=== PATIENT | female | born 1980 | race Caucasian/White ===

== ENCOUNTER → 2019-05-10 | Outpatient (REF) | payer OTHER | LOC: M LAB LCGH 12:00 | PROVIDERS: ATTEND Obstetrics & Gynecology | DX: Z12.4 Encounter for screening for malignant neoplasm of cervix (principal) ==

== ENCOUNTER → 2019-10-11 | Outpatient (REF) | LOC: M LAB 10:21 | PROVIDERS: ATTEND Nurse Practitioner Adult Health | DX: Z02.1 Encounter for pre-employment examination (principal) ==

== ENCOUNTER 2020-11-01 16:07 | Emergency (ER) | payer OTHER ==
[~2020-11-01] VITALS: Ht 175.3 cm; Wt 109.8 kg
[2020-11-01] MEDS ORDERED: METF-838 (16:37)
[2020-11-01] MEDS ORDERED: CETI-24 (16:37)
[2020-11-01] MEDS ORDERED: GLYB5TAB6 (16:37)
[2020-11-01] MEDS ORDERED: EQL50TAB2 PO (16:37)
[2020-11-01] MEDS ORDERED: ZINC1TAB2 PO (16:37)
[2020-11-01] MEDS ORDERED: VITA500079 PO (16:37)
--- OUTSIDE RECORDS SUMMARY | 2020-11-01 18:09 | CCD | Continuity of Care Document ---
Author Author [facility] Organization [facility] Address [address] [place] [address] Phone Support Name Relationship Address Phone Katharine Love PRS [address] [place] [address] Page Arce PRS [address] [place] [address] Allergies, Adverse Reactions, Alerts Allergen Type Severity Reaction Last Updated Verified Status SEASONAL ALLERGIES Allergy Moderate stuffiness, irritated throat May 072018 10:04am No Active Medications Medication Status Dose Units Route Directions Qty Days Start Date End Date Instructions Fluconazole (Diflucan) 150 mg tablet Discontinued 150 MG PO Every Week 4 May 10, 2019 12:5 2pm September 03, 2019 12:01am Nystatin-Triamcinolone Discontinued 0 TOP 2 Times Per Day May 10, 2019 12: 53pm August 10, 2020 9:22am APPLY SMAL L AMOUNT TO AFFECTED AREA TO LABIA TWICE DAILY FOR 7 DAYS DIRECTED MAY REPEAT IF NEEDED topical 2 times per day PRN; Cetirizine (Zyrtec) 10 mg tablet,disintegrating Discontinued 10 MG PO daily May 03, 2019 12:31pm July 14, 2019 1:37pm Cyclobenzaprine Discontinued 10 MG PO 2 Times Per Day 20 May 03, 2019 12 :54pm May 12, 2019 11:00pm Cetirizine Discontinued MG PO September 02, 2019 1:20pm December 27, 2019 10:19am Glyburide Discontinued 5 MG PO 2 Times Per Day 60 September 02, 2019 1:33pm September 27, 2019 12:31pm Glyburide Discontinued 5 MG PO 2 Times Per Day 180 December 27, 2019 10:13am March 27, 2020 10:20am Cetirizine Active 10 MG PO daily 90 December 27, 2019 10:18am Diphenhydramine Hcl (Benadryl Allergy) 25 mg tablet Active 50 MG PO . QD October 09, 2020 3:14pm Glyburide Active 5 MG PO 2 Times Per Day 180 October 09, 2020 3:45pm Metformin Active 1000 MG PO 2 Times Per Day 360 October 09, 2020 3:45pm Metformin Discontinued 2 000 MG PO At Bedtime November 21, 2016 6:59pm May 27, 2019 3:24pm Cyclobenzaprine Discontinued 10 MG PO Every 8 hours November 21, 2016 9:44pm November 11, 2018 10:43am Hydrocodone-Acetaminophen Discontinued 1 - 2 EACH PO Every 4-6 hours November 21, 2016 9:44pm November 11, 2018 10:43am Metformin Discontinued 1 000 MG PO 2 Times Per Day 120 May 27, 2019 3:23pm July 09, 2019 1:45pm Glipizide Discontinued 5 MG PO daily June 28, 2019 10:08am July 09, 2019 1:45pm Glipizide Discontinued 5 MG PO daily July 09, 2019 1:44pm July 14, 2019 11:36am Metformin Discontinued 1 000 MG PO 2 Times Per Day 120 July 09, 2019 1:45pm July 14, 2019 10:35am Metformin Discontinued 1 000 MG PO 2 Times Per Day 120 July 14, 2019 10:35am July 14, 2019 10:36am Metformin Discontinued 1 000 MG PO 2 Times Per Day 360 July 14, 2019 10:35am April 03, 2020 7:21am Blood Sugar Diagnostic (Freestyle Lite Strips) strip Discontinued 0 .ROUTE .MEDSUPPLY July 14, 2019 10:36am July 1:37pm As directed- tests four times a day. Lancets (Freestyle Lancets) 28 gauge [facility] Active 0 .ROUTE .MEDSUPPLY July 14, 2019 10:37am As directed-tests four times a day Glyburide Discontinued 2 .5 MG PO daily July 14, 2019 11:36am July 14, 2019 11:46am Glyburide Discontinued 2 .5 MG PO daily July 14, 2019 11:48am September 02, 2019 1:33pm Blood-Glucose Meter (Onetouch Ultra2 Meter) [facility] Active 0 .ROUTE .MEDSUPPLY July 14, 2019 1:45pm As directed Lancets (Onetouch Delica Lancets) 33 gauge misc Active 0 .ROUTE .MEDSUPPLY 100 July 14, 2019 1:48pm As directed-tests f our times a day Blood Sugar Diagnostic (Onetouch Ultra Blue Test Strip ) strip Discontinued 0 .ROUTE .MEDSUPPLY 100 July 14, 2019 1:51pm September 012018 7:48am As directed-tests four times a day Blood Sugar Diagnostic (Onetouch Ultra Blue Test Strip ) strip Active 0 .ROUTE .MEDSUPPLY 180 September 01, 2019 7:46am As direct ed- tests 3 times per day Glyburide Discontinued 5 MG PO 2 Times Per Day September 27, 2019 12:30pm December 27, 2019 10:14am Empagliflozin (Jardiance) 10 mg tablet Discontinued 10 MG PO E very Morning March 27, 2020 10:20am March 29, 2020 2:07pm Ertugliflozin (Steglatro) 5 mg tablet Discontinued 5 MG PO Ev sterling Morning March 29, 2020 2:07pm April 24, 2020 3:04pm Metformin Discontinued 1 000 MG PO 2 Times Per Day 360 April 03, 2020 7:21am October 09, 2020 3:45pm Fluconazole Discontinued 150 MG PO Q3D 2 0 April 24, 2020 3:03pm June 02, 2020 4:03pm take one tab today, repeat in 3 days if not resolved. Glyburide Discontinued 5 MG PO 2 Times Per Day 60 April 24, 2020 3:04pm October 09, 2020 3:45pm Triamcinolone Acetonide Active 0 .ROUTE .COMPLEX August 10, 2020 9:22am APPLY A SMALL AMOUNT TO AFFE CTED AREA OF LABIA TWICE DAILY FOR 7 DAYS DIRECTED, MAY REPEAT IF NEEDED Nystatin-Triamcinolone Active 0 TOP 2 Times Per Day August 18, 2020 1:20pm APPLY SMALL AMOUNT TO AFFECT ED AREA TO LABIA TWICE DAILY FOR 7 DAYS DIRECTED MAY REPEAT IF NEEDED topical 2 times per day PRN; Problems Active Problems Medical Problem Onset Date Status Low back pain Active Pain in pelvis Active Encounter for herb and vitamin supplement management Active Controlled type 2 diabetes mellitus without complicati on Active Anxiety Active Left shoulder pain Act katarina Neck pain Active Procedures Procedure Date Performed Status Xray Cervical Spine AP/LAT June 20, 2020 9:16am completed Relevant Diagnostic Tests and/or Laboratory Data Laboratory Results Test Date/Time Result Interpretation Reference Range Result Comment Performing Site Blood Urea Nitrogen September 25 10:27am 8 mg/dL 07-05 [facility], [address] [place] [id number] Blood Urea Nitrogen March 27, 2020 9:42am 10 mg/dL 07-05 [facility], [address] [place] [address] [id number] Blood Urea Nitrogen December 13, 2019 9:01am 8 mg/dL 07-05 [facility], [address] [place] [address] [id number] Sodium Level September 25, 2020 10:27am 137 mmol/L 132-146 [facility], [address] [place] [address] [id number] Sodium Level March 27, 2020 9:42am 137 mmol/L 132-146 [facility], [address] [place] [address] [id number] Sodium Level December 13, 2019 9:01am 136 mmol/L 132-146 [facility], [address] [place] [address] [id number] Potassium Level September 25, 2020 10:27a m 4.2 mmol/L 3.5-5.5 [facility], [address] [place] [address] [id number] Potassium Level March 27, 2020 9:42am 4.4 mmol/L 3.5-5.5 [facility], [address] [place] [address] 17904 Potassium Level December 13, 2019 9:01am 4.2 mmol/L 3.5-5.5 [facility], [address] [place] [address] 89371 Chloride Level September 25, 2020 10:27am 104 mmol/l 99-109 [facility], [address] [place] [address] 15466 Chloride Level March 27, 2020 9:42am 105 mmol/l 99-109 [facility], [address] [place] [address] 44353 Chloride Level December 13, 2019 9:01am 103 mmol/l 99-109 [facility], [address] [place] [address] 23028 Carbon Dioxide Level September 25, 2020 10:27am 25 mmol/l [facility], [address] [place] [address] 48880 Carbon Dioxide Level March 27, 2020 9:42a m 24 mmol/l [facility], [address] [place] [address] Carbon Dioxide Level December 13, 2019 9:01a m 27 mmol/l [facility], [address] [place] [address] Anion Gap September 25, 2020 10:27am 12 mmol/l 05-28 [facility], [address] [place] [address] Anion Gap March 27, 2020 9:42am 12 mmol/l 16 [facility], [address] [place] [address] Anion Gap December 13, 2019 9:01am 10 mmol/l 16 [facility], [address] [place] [address] Glucose Level September 25, 2020 10:27am 255 mg/dL -106 [facility], [address] [place] [address] Glucose Level March 27, 2020 9:42am 218 mg/dL - [facility], [address] [place] [address] Glucose Level December 13, 2019 9:01am 198 mg/dL -106 [facility], [address] [place] [address] 54294 Creatinine September 25, 2020 10:27am 0.7 mg/dL 0.5-1.1 [facility], [address] [place] [address] Creatinine March 27, 2020 9:42am 0.7 mg/dL 0.5-1.1 [facility], [address] [place] [address] Creatinine December 13, 2019 9:01am 0.7 mg/dL 0.5-1.1 [facility], [address] [place] [address] Glomerular Filtration Rate Calc Dece 2019 10:27am Greater than 60 ml/min ABOVE 60 [facility], [address] [place] [address] Glomerular Filtration Rate Calc March 27, 2020 9:42am Greater than 60 ml/min ABOVE 60 [facility], [address] [place] [address] Glomerular Filtration Rate Calc Gray 2019 9:01am Greater than 60 ml/min ABOVE 60 [facility], [address] [place] [address] Alanine Aminotransferase (ALT/SGPT) September 25, 2020 10:27am 46 U/L [facility], [address] [place] [address] 13451 Alanine Aminotransferase (ALT/SGPT) December 13, 2019 9:01am 48 U/L 10-49 [facility], [address] [place] [address] Aspartate Amino Transf (AST/SGOT) [facility] 2019 10:27am 26 U/L 0-33 [facility], [address] [place] [address] [id number] Aspartate Amino Transf (AST/SGOT) [facility] 2019 9:01am 27 U/L 0-33 [facility], [address] [place] [address] 38880 Alkaline Phosphatase September 25, 2020 10:27am 59 U/L 45-129 [facility], [address] [place] [address] Alkaline Phosphatase December 13, 2019 9:01a m 62 U/L 45-129 [facility], [address] [place] [address] Calcium Level September 25, 2020 10:27am 9.3 mg/dL 8.5-10.1 [facility], [address] [place] [address] Calcium Level March 27, 2020 9:42am 9.4 mg/dL 8.5-10.1 [facility], [address] [place] [address] Calcium Level December 13, 2019 9:01am 9.1 mg/dL 8.5-10.1 [facility], [address] [place] [address] Total Bilirubin September 25, 2020 10:27a m 1.1 mg/dL 0.3-1.2 [facility], [address] [place] [address] Total Bilirubin December 13, 2019 9:01am 0.8 mg/dL 0.3-1.2 [facility], [address] [place] [address] 49420 Albumin September 25, 2020 10:27am 3.7 g/dL 3.2-4.8 [facility], [address] [place] [address] Albumin December 13, 2019 9:01am 4.0 g/dL 3.2-4.8 [facility], [address] [place] [address] 16589 Serum Total Protein September 25 10:27am 6.9 g/dL 5.7-8.2 [facility], [address] [place] [address] Serum Total Protein December 13, 2019 9:01am 7.5 g/dL 5.7-8.2 [facility], [address] [place] [address] Triglycerides Level September 25 10:27am 313 mg/dL 0-150 [facility], [address] [place] [address] Cholesterol Level September 25 0 10:27am 223 mg/dL 120-200 [facility], [address] [place] [address] HDL Cholesterol September 25, 2020 10:27a m 48 mg/dL HDL Less than 40 mg/dL: Major risk for CHDHDL Greater than 59 mg/dL: Low risk for CHD [facility], [address] [place] [address] LDL Cholesterol, Calculated September 25, 2020 10:27am 113 mg/dL 0-100 [facility], [address] [place] [address] Urine Random Creatinine December 12 9:09am 141.0 mg/dL THERE IS NO ESTABLISHED RANGE FOR RANDOM URINE CREATININE [facility], [address] [place] [address] Urine Microalbumin December 13, 2019 9:09am 20.3 mg/L 0.0-29.9 [facility], [address] [place] [address] Urine Microalbumin/Creatinine Ratio December 13, 2019 9:09am 14.3 ug/mg 0.0-30.0 [facility], [address] [place] [address] Hemoglobin A1c September 25, 2020 10:27am 9.3 % 4.0-6.0 The following ranges may be used for interpretation of results: HGBA1C degree of glucose control: Greater than 8%: Action Suggested * Less than 7%: Goal of Diabetic Therapy Less than 6%: Normal Factors such as duration of diabetes, adherence to therapyand the age of the patient should also be considered inassessing the degree of blood glucose control. * High risk of developing regional intermodal truck driver complications such asretinopathy, nephropathy, neuropathy, cardiopathy, etc. Some danger of hypoglycemic reaction in Type I diabetics.Some glucose intolerant individuals and "Sub Clinical"diabetics may demonstrate HGBA1C levels in this area. [facility], [address] [place] [address] Hemoglobin A1c March 27, 2020 9:42am 9.2 % 4.0-6.0 Th e following ranges may be used for interpretation of results: HGBA1C degree of glucose control: Greater than 8%: Action Suggested * Less than 7%: Goal of Diabetic Therapy Less than 6%: Normal Factors such as duration of diabetes, adherence to therapyand the age of the patient should also be considered inassessing the degree of blood glucose control. * High risk of developing senior care complications such asretinopathy, nephropathy, neuropathy, cardiopathy, etc. Some danger of hypoglycemic reaction in Type I diabetics.Some glucose intolerant individuals and "Sub Clinical"diabetics may demonstrate HGBA1C levels in this area. [facility], [address] [place] [address] Hemoglobin A1c December 13, 2019 9:01am 8.4 % 4.0-6.0 Th e following ranges may be used for interpretation of results: HGBA1C degree of glucose control: Greater than 8%: Action Suggested * Less than 7%: Goal of Diabetic Therapy Less than 6%: Normal Factors such as duration of diabetes, adherence to therapyand the age of the patient should also be considered inassessing the degree of blood glucose control. * High risk of developing senior care complications such asretinopathy, nephropathy, neuropathy, cardiopathy, etc. Some danger of hypoglycemic reaction in Type I diabetics.Some glucose intolerant individuals and "Sub Clinical"diabetics may demonstrate HGBA1C levels in this area. [facility], [address] [place] [address] Estimated Average Glucose (eAG) [facility] 2019 10:27am 220 mg/dl An A1C of 7% - the goal of diabetic ther apy - is equivalentto an EAG of 154 mg/dl. [facility], [address] [place] [address] Estimated Average Glucose (eAG) March 27, 2020 9:42am 217 mg/dl An A1C of 7% - the goal of diabetic therapy - is equivalentto an EAG of 154 mg/dl. [facility], [address] [place] [address] Estimated Average Glucose (eAG) [facility] 2019 9:01am 194 mg/dl An A1C of 7% - the goal of diabetic therapy - is equivalentto an EAG of 154 mg/dl. [facility], [address] [place], [place] [id number] Diagnostic Imaging Reports Report Dictated Date/Time Dictated By Status Radiology Report June 21, 2020 5:36p m Jessa Bello MD completed [facility] [address] [place] [address] [phone] NAME SEX PT STATUS ACCOUNT NUMBER JENNIFER ALONZO REG REF [id number] ORDERING PHYSICIAN LOCATION MEDICAL RECORD NO. Katharine Love RAD [id number] ATTENDING PHYSICIAN DATE OF DATE OF EXAM/TIME Katharine Love DIRECTOR CORRECTIONAL AGENCY 1980 06/20/20 / 1016 TYPE / EXAM Xray Cervical Spine AP/LAT REASON FOR EXAM neck pain into left trap COMPARISON: None FINDINGS: Routine views show no evidence of fracture or dislocation. The vertebral bodies and disk spaces are well-maintained. The pedicles and posterior elements are intact. Oblique views show no encroachment on the neural foramen. The paraspinal soft tissues appear normal. IMPRESSION: Unremarkable cervical spine. Reported By Jessa Bello MD on 06/21/201735 Signed By Jessa Bello MD on 06/21/201736 Date Time CC: Katharine Love; Jessa Bello MD Techn: RADTC Trans Dt/Tm: Trans by: DT Prt Dt/Tm: [id number]: Total DLP = 0.00 mGy-cm Fluoroscopy Time (in secs): Health Concerns Health Concerns may be documented in an alternate section. Advance Directives Advance Directive Response Recorded Date/Time Advanced Directive No Au lizeth 2019 2:41pm Does Patient have a DNR? No October 09, 2020 3:12pm Healthcare Proxy No Dece [email or web address] 2019 3:12pm Living Will No October 09, 2020 3:12pm Chief Complaint and Reason for Visit Chief Complaint E11.65 Diabetes Diabetes follow-up E11.9 Shoulder pain/injury Shoulder pain/injury follow-up NECK PAIN INTO LT TRAP I10,E11.9 Medication check Reason for Visit Left shoulder pain Neck pain Encounters Encounter Location(s) Jose schillingl/Admit Date Discharge/Depart Date Provider(s) Registered Referred -Laboratory December 13, 2019 8:56am Katharine Love Departed Physician/Provider Office Visit -[facility] December 27, 2019 10:07am December 27, 2019 10:59am Katharine Love Departed Physician/Provider Office Visit -[facility] March 27, 2020 9:03am March 27, 2020 9:31am Katharine Love Registered Referred -Laboratory March 27, 2020 9:33am Katharine Love Departed Physician/Provider Office Visit -[facility] June 02, 2020 4:00pm June 02, 2020 4:28pm Page Yazmin Departed Physician/Provider Office Visit -[facility] June 20, 2020 8:27am June 20, 2020 9:00am Katharine Love Registered Referred -Radiology June 20, 2020 9:04am Katharine Love Registered Referred -Laboratory September 25, 2020 10:15am Katharine Love Departed Physician/Provider Office Visit -[facility] October 09, 2020 3:08pm October 09, 2020 3:51pm Katharine Love Recent Diagnosis Onset Date Left shoulder pain Neck pain Assessments Diagnosis Onset Date Res olution Status Left shoulder pain acute Neck pain acute Functional Status No Functional Status information available Goals Goals may be documented in an alternate section. Immunizations No Immunization Information Available Mental Status No Mental Status Information Available Medical Equipment No Medical Equipment Information available Insurance Providers Guarantor JENNIFER ALONZO Address [address] [place] [address] Contact Info. Home Phone: Payer Policy Id Coverage Id Subscriber's Name Subscriber Id Effective Date Expiration Date BC/BS [facility] [id number] JENNIFER ALONZO [id number] BC[facility] [id number] JENNIFER ALONZO [id number] 2016 [place] [facility] [place] [id number] JENNIFER ALONZO [id number] [facility] [id number] JENNIFER ALONZO [id number] MEDICAID [id number] JENNIFER ALONZO [id number] Self Pay Self N/A [facility] MEDICAID [id number] JENNIFER ALONZO [id number] Plan of Treatment Xray of neck ordered. I think the pain in her left shoulder region is radiating from her neck. She will have an xray done of the cervical spine. We discuss at home stretching for the neck, as she is unable to go to PT. She has a massage today, which I think will help her as calista pollard. I will have her follow up with Dr. Marlow in the next 1-2 weeks if not better. Otherwise, if she pro gressively gets better I will see her at her July appt. Pt advised I would recommend evaluation and treatment by Physical therapy. She w ill continue to avoid activities that cause pain. She has agreed to try PT. Follow up if getting worse or not resolving in 5-7 days either here or with PCP Future Tests Future scheduled test information is unavailable Pending Tests Pending diagnostic test information is unavailable Future Visits Future appointment information is unavailable Referrals to Other Providers Referral information is unavailable Future Procedures Future procedure information is unavailable Future Medications Future medication information is unavailable Patient Instructions Type 2 Diabetes in Adults: New Diagnosis (GEN) Social History Smoking Status Status Date of Observation Former smoker October 09, 2020 3: 12pm Observation Status Date of Observation Not June 02, 2020 Observation Status Observation Response Damaso e of Response Smoking Status Former smoker October 09, 2020 3:12pm Alcohol Use Yes May 142019 2:41pm Substance Use No June 02, 2020 2:41pm Assigned Sex Female Vital Signs Vital Reading Result Ref erence Range Collection Date/Time Weight 236.00 [lb_av] December 27, 2019 11:11am Heart Rate 78 /min 60-100 December 27, 2019 11:11am Respiratory rate 16 /min 12-24 December 27, 2019 11:11am Oxygen saturation by Pulse oximetry 98 % 95- 100 December 27, 2019 11:11am BP Systolic 152 mm[Hg] December 27, 2019 11:11am BP Diastolic 98 mm[Hg] December 27, 2019 11:11am Height 69 [in_i] March 27, 2020 10:03am Weight 240.00 [lb_av] March 27, 2020 10:03am Body Temperature 98.4 [degF] 97.6-99.5 March 27, 2020 10:03am Heart Rate 80 /min 60-100 March 27, 2020 10:03am Respiratory rate 18 /min -March 27, 2020 10:03am Oxygen saturation by Pulse oximetry 97 % 95- 100 March 27, 2020 10:03am BP Systolic 126 mm[Hg] March 27, 2020 10:03am BP Diastolic 80 mm[Hg] March 27, 2020 10:03am BMI (Body Mass Index) 35.4 kg/m2 March 27, 2020 10:03am Weight 239.25 [lb_av] June 02, 2020 4:53pm Body Temperature 97.5 [degF] 97.6-99.5 June 02, 2020 4:53pm Heart Rate 87 /min 60-100 June 02, 2020 4:53pm Respiratory rate 18 /min -June 02, 2020 4:53pm Oxygen saturation by Pulse oximetry 98 % 95- 100 June 02, 2020 4:53pm BP Systolic 126 mm[Hg] June 02, 2020 4:53pm BP Diastolic 80 mm[Hg] June 02, 2020 4:53pm Height 69 [in_i] June 20, 2020 9:33am Weight 240.00 [lb_av] June 20, 2020 9:33am Heart Rate 68 /min 60-100 June 20, 2020 9:33am Respiratory rate 12 /min -June 20, 2020 9:33am Oxygen saturation by Pulse oximetry 98 % 95- 100 June 20, 2020 9:33am BP Systolic 120 mm[Hg] June 20, 2020 9:33am BP Diastolic 72 mm[Hg] June 20, 2020 9:33am BMI (Body Mass Index) 35.4 kg/m2 June 20, 2020 9:33am Weight 239.00 [lb_av] October 09, 2020 3:19pm Body Temperature 98.2 [degF] 97.6-99.5 October 09, 2020 3:19pm Heart Rate 82 /min 60-100 October 09, 2020 3:19pm Respiratory rate 20 /min 12-October 09, 2020 3:19pm Oxygen saturation by Pulse oximetry 95 % 95- 100 October 09, 2020 3:19pm BP Systolic 130 mm[Hg] October 09, 2020 3:19pm BP Diastolic 80 mm[Hg] October 09, 2020 3:19pm
--- OUTSIDE RECORDS SUMMARY | 2020-11-01 18:09 | CCD | Continuity of Care Document ---
Author Author Sheila HARDEN NP Organization Unknown Address [address] [place] [address] [place] [address] Phone [phone] Care Team Providers Care Lacing Presser Name Role Phone [facility] [phone] Problems Description No Information Available Social History Type Date Description Comments Sex Unknown ETOH Use Occasionally consumes alcohol Tobacco Use Start: Unknown The patient has never vaped Tobacco Use Start: Unknown Patient has never smoked Smoking Status Reviewed: 08/12/20 Patient has never smoked Allergies, Adverse Reactions, Alerts Description No Known Drug Allergies Medications Active Medications SIG Qnty Indications Ordering Provide r Date Metformin HCL 1000mg Tablets bid Unknown Glimepiride 4mg Tablets bid Unknown Zyrtec Allergy 10mg Capsules 1 tab by mouth every day as needed for allergy symptoms U nknown Benadryl Allergy 25mg Capsules Unknown Immunizations Description No Information Available Vital Signs Date Vital Result Comment 08/12/2020 4:26pm BP Systolic 140 mmHg BP Diastolic 90 mmHg Heart Rate 89 /min Respiratory Rate 14 /min O2 % BldC Oximetry 98 % Body Temperature 98.1 F Weight 230.00 lb Height 69 inches 5'9" BMI (Body Mass Index) 34.0 kg/m2 Pain Level 1 Results Description No Information Available Procedures Description No Information Available Medical Devices Description No Information Available Encounters Type Date Location Provider Dx Diagnosis Office Visit 08/12/2020 4:00p Main Office Radha Harden NP J06. 9 Acute upper respiratory infection, unspecified Z20.828 Contact w and exposure to ot h viral communicable diseases Assessments Date Code Description Provider 08/12/2020 J06.9 Acute upper respiratory infectio n, unspecified Radha Harden NP 08/12/2020 Z20.828 Contact with and (scott spected) exposure to other viral communicable diseases Radha Harden NP Plan of Treatment No Information Available Functional Status Description No Information Available Mental Status Description No Information Available Referrals Description No Information Available
--- OUTSIDE RECORDS SUMMARY | 2020-11-01 18:09 | CCD | Continuity of Care Document ---
Author Author Sheila HARDEN NP Organization Unknown Address [address] [place] [address] [place] [address] Phone [phone] Care Team Providers Care Insole Cementer Name Role Phone [facility] [phone] Problems Description No Information Available Social History [...]
--- OUTSIDE RECORDS SUMMARY | 2020-11-01 18:10 | CCD ---
Author Author [facility] Organization [facility] Address Unknown Phone Unavailable Care Team Providers Care French Tutor Name Role Phone Arce, L Page ACTUARY CLERK Unavailable Unavailable Arce, L Page ACTUARY CLERK Unavailable Unavailable Arce, L Page ACTUARY CLERK Unavailable Unavailable Arce, L Page ACTUARY CLERK Unavailable Unavailable Arce, L Page ACTUARY CLERK Unavailable Unavailable Arce, L Page ACTUARY CLERK Unavailable Unavailable Arce, L Page ACTUARY CLERK Unavailable Unavailable Arce, L Page ACTUARY CLERK Unavailable Unavailable Arce, L Page ACTUARY CLERK Unavailable Unavailable Arce, L Page ACTUARY CLERK Unavailable Unavailable Arce, L Page ACTUARY CLERK Unavailable Unavailable Arce, L Page ACTUARY CLERK Unavailable Unavailable Arce, L Page ACTUARY CLERK Unavailable Unavailable Arce, L Page ACTUARY CLERK Unavailable Unavailable Arce, L Page ACTUARY CLERK Unavailable Unavailable Arce, L Page ACTUARY CLERK Unavailable Unavailable Arce, L Page ACTUARY CLERK Unavailable Unavailable Arce, L Page ACTUARY CLERK Unavailable Unavailable Arce, L Page ACTUARY CLERK Unavailable Unavailable Arce, L Page ACTUARY CLERK Unavailable Unavailable Arce, L Page ACTUARY CLERK Unavailable Unavailable Arce, L Page ACTUARY CLERK Unavailable Unavailable Arce, L Page ACTUARY CLERK Unavailable Unavailable Arce, L Page ACTUARY CLERK Unavailable Unavailable Arce, L Page ACTUARY CLERK Unavailable Unavailable Arce, L Page ACTUARY CLERK Unavailable Unavailable Arce, L Page ACTUARY CLERK Unavailable Unavailable Arce, L Page ACTUARY CLERK Unavailable Unavailable Arce, L Page ACTUARY CLERK Unavailable Unavailable Arce, L Page ACTUARY CLERK Unavailable Unavailable Arce, L Page ACTUARY CLERK Unavailable Unavailable Arce, L Page ACTUARY CLERK Unavailable Unavailable Arce, L Page ACTUARY CLERK Unavailable Unavailable Arce, L Page ACTUARY CLERK Unavailable Unavailable Arce, L Page ACTUARY CLERK Unavailable Unavailable Arce, L Page ACTUARY CLERK Unavailable Unavailable Arce, L Page ACTUARY CLERK Unavailable Unavailable Arce, L Page ACTUARY CLERK Unavailable Unavailable Arce, L Page ACTUARY CLERK Unavailable Unavailable Arce, L Page ACTUARY CLERK Unavailable Unavailable Arce, L Page ACTUARY CLERK Unavailable Unavailable Arce, L Page ACTUARY CLERK Unavailable Unavailable Arce, L Page ACTUARY CLERK Unavailable Unavailable Leno CAMARENA MD Unavailable Unavailable Leno CAMARENA MD Unavailable Unavailable Leno CAMARENA MD Unavailable Unavailable Leno CAMARENA MD Unavailable Unavailable Leno CAMARENA MD Unavailable Unavailable Leno CAMARENA MD Unavailable Unavailable Leno CAMARENA MD Unavailable Unavailable Leno CAMARENA MD Unavailable Unavailable Leno CAMARENA MD Unavailable Unavailable NICOL B LUTHER HORNER Unavailable Unavailable Leno CAMARENA MD Unavailable Unavailable Leno CAMARENA MD Unavailable Unavailable Leno CAMARENA MD Unavailable Unavailable Leno CAMARENA MD Unavailable Unavailable Leno CAMARENA MD Unavailable Unavailable NICOL B LUTHER HORNER Unavailable Unavailable Leno CAMARENA MD Unavailable Unavailable NICOL B LUTHER HORNER Unavailable Unavailable NICOL Leno SLOAN MD Unavailable Unavailable NICOL, Leno SLOAN MD Unavailable Unavailable NICOL, Leno SLOAN MD Unavailable Unavailable NICOL, Leno SLOAN MD Unavailable Unavailable NICOL, Leno SLOAN MD Unavailable Unavailable NICOL, Leno SLOAN MD Unavailable Unavailable NICOL, Leno SLOAN MD Unavailable Unavailable NICOL, Leno SLOAN MD Unavailable Unavailable NICOL, Leno SLOAN MD Unavailable Unavailable NICOL, Leno SLOAN MD Unavailable Unavailable NICOL, Leno SLOAN MD Unavailable Unavailable NICOL, Leno SLOAN MD Unavailable Unavailable NICOL, Leno SLOAN MD Unavailable Unavailable NICOL, Leno SLOAN MD Unavailable Unavailable NICOL, Leno SLOAN MD Unavailable Unavailable NICOL, Leno SLOAN MD Unavailable Unavailable NICOL, Leno SLOAN MD Unavailable Unavailable NICOL, Leno SLOAN MD Unavailable Unavailable NICOL, Leno SLOAN MD Unavailable Unavailable NICOL, Leno SLOAN MD Unavailable Unavailable NICOL, Leno SLOAN MD Unavailable Unavailable NICOL, Leno SLOAN MD Unavailable Unavailable NICOL, Leno SLOAN MD Unavailable Unavailable NICOL, Leno SLOAN MD Unavailable Unavailable NICOL, Leno SLOAN MD Unavailable Unavailable NICOL, Leno SLOAN MD Unavailable Unavailable NICOL, Leno SLOAN MD Unavailable Unavailable NICOL, Leno SLOAN MD Unavailable Unavailable NICOL, Leno SLOAN MD Unavailable Unavailable NICOL, Leno SLOAN MD Unavailable Unavailable NICOL, Leno SLOAN MD Unavailable Unavailable NICOL, Leno SLOAN MD Unavailable Unavailable NICOL, Leno SLOAN MD Unavailable Unavailable NICOL, Leno SLOAN MD Unavailable Unavailable NICOL, Leno SLOAN MD Unavailable Unavailable NICOL, Leno SLOAN MD Unavailable Unavailable NICOL, Leno SLOAN MD Unavailable Unavailable NICOL, Leno SLOAN MD Unavailable Unavailable NICOL, Leno SLOAN MD Unavailable Unavailable NICOL, Leno SLOAN MD Unavailable Unavailable NICOL, Leno SLOAN MD Unavailable Unavailable NICOL, Leno SLOAN MD Unavailable Unavailable NICOL, Leno SLOAN MD Unavailable Unavailable NICOL, Leno SLOAN MD Unavailable Unavailable NICOL, Leno SLOAN MD Unavailable Unavailable NICOL, Leno SLOAN MD Unavailable Unavailable NICOL, Leno SLOAN MD Unavailable Unavailable NICOL, Leno SLOAN MD Unavailable Unavailable NICOL, Leno SLOAN MD Unavailable Unavailable NICOL, Leno SLOAN MD Unavailable Unavailable NICOL, Leno SLOAN MD Unavailable Unavailable NICOL, Leno SLOAN MD Unavailable Unavailable NICOL, Leno SLOAN MD Unavailable Unavailable NICOL, Leno SLOAN MD Unavailable Unavailable NICOL, Leno SLOAN MD Unavailable Unavailable NICOL, Leno SLOAN MD Unavailable Unavailable NICOL, Leno SLOAN MD Unavailable Unavailable NICOL, Leno SLOAN MD Unavailable Unavailable NICOL, Leno SLOAN MD Unavailable Unavailable NICOL, Leno SLOAN MD Unavailable Unavailable NICOL, Leno SLOAN MD Unavailable Unavailable NICOL, Leno SLOAN MD Unavailable Unavailable NICOL, Leno SLOAN MD Unavailable Unavailable NICOL, Leno SLOAN MD Unavailable Unavailable NICOL, Leno SLOAN MD Unavailable Unavailable [facility], ALONGO Unavailable Unavailable Milian, Radha ACTUARY CLERK Unavailable Unavailable Milian, Radha ACTUARY CLERK Unavailable Unavailable Milian, Radha ACTUARY CLERK Unavailable Unavailable Milian, Radha ACTUARY CLERK Unavailable Unavailable Milian, Radha ACTUARY CLERK Unavailable Unavailable Milian, Radha ACTUARY CLERK Unavailable Unavailable Milian, Radha ACTUARY CLERK Unavailable Unavailable Milian, Radha ACTUARY CLERK Unavailable Unavailable Milian, Radha ACTUARY CLERK Unavailable Unavailable Milian, Rdaha ACTUARY CLERK Unavailable Unavailable Milian, Radha ACTUARY CLERK Unavailable Unavailable Ivan, A Katharine ACTUARY CLERK Unavailable Unavailable Ivan, A Katharine ACTUARY CLERK Unavailable Unavailable Ivan, A Katharine ACTUARY CLERK Unavailable Unavailable Ivan, A Katharine ACTUARY CLERK Unavailable Unavailable Ivan, A Katharine ACTUARY CLERK Unavailable Unavailable Ivan, A Katharine ACTUARY CLERK Unavailable Unavailable Ivan, A Katharine ACTUARY CLERK Unavailable Unavailable Ivan, A Katharine ACTUARY CLERK Unavailable Unavailable Ivan, A Katharine ACTUARY CLERK Unavailable Unavailable Ivan, A Katharine ACTUARY CLERK Unavailable Unavailable Ivan, A Katharine ACTUARY CLERK Unavailable Unavailable Ivan, A Katharine ACTUARY CLERK Unavailable Unavailable Ivan, A Katharine ACTUARY CLERK Unavailable Unavailable Ivan, A Katharine ACTUARY CLERK Unavailable Unavailable Ivan, A Katharine ACTUARY CLERK Unavailable Unavailable Ivan, A Katharine ACTUARY CLERK Unavailable Unavailable Ivan, A Katharine ACTUARY CLERK Unavailable Unavailable Ivan, A Katharine ACTUARY CLERK Unavailable Unavailable Ivan, A Katharine ACTUARY CLERK Unavailable Unavailable Ivan, A Katharine ACTUARY CLERK Unavailable Unavailable Ivan, A Katharine ACTUARY CLERK Unavailable Unavailable Ivan, A Katharine ACTUARY CLERK Unavailable Unavailable Ivan, A Katharine ACTUARY CLERK Unavailable Unavailable Ivan, A Katharine ACTUARY CLERK Unavailable Unavailable Ivan, A Katharine ACTUARY CLERK Unavailable Unavailable Ivan, A Katharine ACTUARY CLERK Unavailable Unavailable Ivan, A Katharine ACTUARY CLERK Unavailable Unavailable Ivan, A Katharine ACTUARY CLERK Unavailable Unavailable Ivan, A Katharine ACTUARY CLERK Unavailable Unavailable Ivan, A Katharine ACTUARY CLERK Unavailable Unavailable Ivan, A Katharine ACTUARY CLERK Unavailable Unavailable Ivan, A Katharine ACTUARY CLERK Unavailable Unavailable Ivan, A Katharine ACTUARY CLERK Unavailable Unavailable Ivan, A Katharine ACTUARY CLERK Unavailable Unavailable Ivan, A Katharine ACTUARY CLERK Unavailable Unavailable Ivan, A Katharine ACTUARY CLERK Unavailable Unavailable Ivan, A Katharine ACTUARY CLERK Unavailable Unavailable Ivan, A Katharine ACTUARY CLERK Unavailable Unavailable Re-disclosure Warning The records that you are about to access may contain information from federally-assisted alcohol or drug abuse programs. If such information is present, then the following federally mandated warning applies: This information has been disclosed to you from records protected by federal confidentiality rules (42 CFR part 2). The federal rules prohibit you from making any further disclosure of this information unless further disclosure is expressly permitted by the written consent of the person to whom it pertains or as otherwise permitted by 42 CFR part 2. A general authorization for the release of medical or other information is NOT sufficient for this purpose. The Federal rules restrict any use of the information to criminally investigate or prosecute any alcohol or drug abuse patient.The records that you are about to access may contain highly sensitive health information, the redisclosure of which is protected by Article 27-F of the [facility] Public Health law. If you continue you may have access to information: Regarding HIV / AIDS; Provided by facilities licensed or operated by the [facility] Office of Mental Health; or Provided by the [facility] Office for People With Developmental Disabilities. If such information is present, then the following [facility] mandated warning applies: This information has been disclosed to you from confidential records which are protected by state law. State law prohibits you from making any further disclosure of this information without the specific written consent of the person to whom it pertains, or as otherwise permitted by law. Any unauthorized further disclosure in violation of state law may result in a fine or care home sentence or both. A general authorization for the release of medical or other information is NOT sufficient authorization for further disc losure. Allergies and Adverse Reactions Type Description Substance Reaction Status Data Source(s ) Drug Class NO KNOWN ALLERGIES NO KNOWN ALLERGIES [facility] Encounters Encounter Providers Location Date Indications Data Source(s ) Outpatient Attender: Katharine Love NP 10/09/2020 03:52:00 PM EST [facility] Outpatient Attender: Katharine Love NPReferrer: Katharine pollard NP 10/09/2020 03:08:00 PM EST - 10/09/2020 03:51:00 PM EST [facility] Outpatient Attender: Katharine Love NP 09/25/2020 10:15:00 AM EST I10,E11.9 [facility] I10,E11.9 Outpatient Attender: Radha blood 08/12/2020 04:00:00 PM EDT [facility] ([facility] Outpatient Attender: [facility] 06/21/2020 10:22:01 AM ED T [facility] Outpatient Attender: [facility] 06/20/2020 03:54:00 PM ED T [facility] Outpatient Attender: Katharine Love NP 06/20/2020 10: 04:00 AM EDT NECK PAIN INTO LT TRAP [facility] NECK PAIN INTO LT TRAP Outpatient Attender: Katharine Love NPReferrer: Katharine pollard NP 06/20/2020 09:27:00 AM EDT - 06/20/2020 10:00:00 AM EDT [facility] Outpatient Attender: Page Arce NPReferrer: Katharine rodriguez NP 06/02/2020 05:00:00 PM EDT - 06/02/2020 05:28:00 PM EDT [facility] Outpatient Attender: [facility] 05/08/2020 11:28:02 AM ED T [facility] 05/08/2020 11:20:00 AM ED T [facility] Outpatient Attender: [facility] 04/26/2020 12:26:00 PM ED T [facility] 04/26/2020 10:55:00 AM ED T [facility] Outpatient Attender: Katharine Love NP 03/27/2020 10:33:00 AM EDT E11.9 [facility] E11.9 Outpatient Attender: Katharine Love NPReferrer: Katharine pollard NP 03/27/2020 10:03:00 AM EDT - 03/27/2020 10:31:00 AM EDT [facility] Outpatient Attender: [place] [facility] 03/21/2020 07:59:28 PM ED T [facility] 03/11/2020 12:18:17 AM ED T [facility] Outpatient Attender: [facility] 02/14/2020 11:23:01 AM ED T [facility] 12/29/2019 08:09:01 AM ED T [facility] Outpatient Attender: ALONGO [facility] 12/27/2019 09:01:[address] [facility] 12/27/2019 03:07:[address] [facility] 12/27/2019 03:06:00 PM ED T [facility] 12/27/2019 02:33:01 PM ED T [facility] Outpatient [facility] 12/27/2019 02:28:00 PM ED T [facility] Outpatient Attender: ALONGO [facility] 12/27/2019 02:26:00 PM ED T [facility] Outpatient Attender: Katharine Love NPReferrer: Katharine pollard NP 12/27/2019 11:07:00 AM EDT - 12/27/2019 11:59:00 AM EDT [facility] Outpatient Attender: Katharine Love NP 12/13/2019 08:56:00 AM EST E11.65 [facility] E11.65 Outpatient Attender: [facility] 10/15/2019 11:52:[address] [facility] Outpatient Attender: [facility] 09/24/2019 02:09:[address] [facility] 09/24/2019 02:08:01 PM ES T [facility] Outpatient Attender: LUTHER CAMARENA MD [id number] 09/23/2019 12:00:00 AM [facility] Outpatient Attender: Katharine Love NP 09/02 12:56:00 PM EST - 09/02/2019 01:48:00 PM EST [facility] Outpatient Attender: Katharine Love NP 09/01/2019 05:08:00 PM EST E11.65 [facility] E11.65 Medications Medication Brand Name Start Date Product Form Dose Route Admi nistrative Instructions Pharmacy Instructions Status Indications Reaction Description Data Source(s) 24 HR Metformin hydrochloride 500 MG Extended Release Oral T ablet Metformin 10/09/2020 03:45:34 PM EST 1000 MG active [facility] Glyburide 5 MG Oral Tablet Glyburide 10/09/2020 03:45:03 PM EST 5 MG active [facility] Diphenhydramine Hydrochloride 25 MG Oral Tablet Diphenhydramine Hcl (Benadryl Allergy) 25 mg tablet Diphenhydramine Hcl (Benadryl Allergy) 25 mg tablet 10/09/2020 03:14:11 PM EST 50 MG [facility] Nystatin 100 UNT/MG / Triamcinolone Acet onide 0.001 MG/MG Topical Ointment Nystatin-Triamcinolone Nystatin-Triamcinolone 08/18/2020 01:20:58 PM EST [address] [facility] Triamcinolone Acetonide 0.001 MG/MG Topical Ointment Triamci nolone Acetonide 08/10/2020 10:22:38 AM EDT 0 active [facility] Glyburide 5 MG Oral Tablet Glyburide 04/24/2020 04:04:01 PM EDT 5 MG active [facility] Glyburide 5 MG Oral Tablet Glyburide 04/24/2020 04:04:01 PM EDT 5 MG completed [facility] Glyburide 5 MG Oral Tablet Glyburide 04/24/2020 04:04:01 PM EDT 5 MG active [facility] Fluconazole 150 MG Oral Tablet Fluconazole 04/24/2020 04:03:39 PM EDT 150 MG completed [facility] Fluconazole 150 MG Oral Tablet Fluconazole 04/24/2020 04:03:39 PM EDT 150 MG completed [facility] Fluconazole 150 MG Oral Tablet Fluconazole 04/24/2020 04:03:39 PM EDT 150 MG completed [facility] 24 HR Metformin hydrochloride 500 MG Extended Release Oral T ablet Metformin 04/03/2020 08:21:34 AM EDT 1000 MG active [facility] 24 HR Metformin hydrochloride 500 MG Extended Release Oral T ablet Metformin 04/03/2020 08:21:34 AM EDT 1000 MG completed [facility] 24 HR Metformin hydrochloride 500 MG Extended Release Oral T ablet Metformin 04/03/2020 08:21:34 AM EDT 1000 MG active [facility] Ertugliflozin (Steglatro) 5 mg tablet 03/29/2020 03:07:31 PM EDT 5 MG completed [facility] Ertugliflozin (Steglatro) 5 mg tablet 03/29/2020 03:07:31 PM EDT 5 MG completed [facility] Ertugliflozin (Steglatro) 5 mg tablet 03/29/2020 03:07:31 PM EDT 5 MG completed [facility] empagliflozin 10 MG Oral Tablet Empagliflozin (Jardian ce) 10 mg tablet Empagliflozin (Jardiance) 10 mg tablet 03/27/2020 11:20:56 AM EDT 10 M G completed [facility] empagliflozin 10 MG Oral Tablet Empagliflozin (Jardian ce) 10 mg tablet Empagliflozin (Jardiance) 10 mg tablet 03/27/2020 11:20:56 AM EDT 10 M G completed [facility] empagliflozin 10 MG Oral Tablet Empagliflozin (Jardian ce) 10 mg tablet Empagliflozin (Jardiance) 10 mg tablet 03/27/2020 11:20:56 AM EDT 10 M G completed [facility] cetirizine hydrochloride 10 MG Oral Tablet Cetirizine Cetiri zine 12/27/2019 11:18:41 AM EDT 10 MG completed [facility] cetirizine hydrochloride 10 MG Oral Tablet Cetirizine Cetiri zine 12/27/2019 11:18:41 AM EDT 10 MG active [facility] cetirizine hydrochloride 10 MG Oral Tablet Cetirizine Cetiri zine 12/27/2019 11:18:41 AM EDT 10 MG active [facility] cetirizine hydrochloride 10 MG Oral Tablet Cetirizine Cetiri zine 12/27/2019 11:18:41 AM EDT 10 MG active [facility] cetirizine hydrochloride 10 MG Oral Tablet Cetirizine Cetiri zine 12/27/2019 11:18:41 AM EDT 10 MG active [facility] Glyburide 5 MG Oral Tablet Glyburide 12/27/2019 11:13:35 AM EDT 5 MG completed [facility] Glyburide 5 MG Oral Tablet Glyburide 12/27/2019 11:13:35 AM EDT 5 MG active [facility] Glyburide 5 MG Oral Tablet Glyburide 12/27/2019 11:13:35 AM EDT 5 MG completed [facility] Glyburide 5 MG Oral Tablet Glyburide 12/27/2019 11:13:35 AM EDT 5 MG completed [facility] Glyburide 5 MG Oral Tablet Glyburide 12/27/2019 11:13:35 AM EDT 5 MG completed [facility] Glyburide 5 MG Oral Tablet Glyburide 09/27/2019 12:30:59 PM EST 5 MG completed [facility] Glyburide 5 MG Oral Tablet Glyburide 09/27/2019 12:30:59 PM EST 5 MG completed [facility] Glyburide 5 MG Oral Tablet Glyburide 09/27/2019 12:30:59 PM EST 5 MG completed [facility] Glyburide 5 MG Oral Tablet Glyburide 09/27/2019 12:30:59 PM EST 5 MG completed [facility] Glyburide 5 MG Oral Tablet Glyburide 09/27/2019 12:30:59 PM EST 5 MG completed [facility] Glyburide 5 MG Oral Tablet Glyburide 09/02/2019 01:33:43 PM EST 5 MG completed [facility] Glyburide 5 MG Oral Tablet Glyburide 09/02/2019 01:33:43 PM EST 5 MG completed [facility] Glyburide 5 MG Oral Tablet Glyburide 09/02/2019 01:33:43 PM EST 5 MG completed [facility] Glyburide 5 MG Oral Tablet Glyburide 09/02/2019 01:33:43 PM EST 5 MG completed [facility] Glyburide 5 MG Oral Tablet Glyburide 09/02/2019 01:33:43 PM EST 5 MG completed [facility] cetirizine hydrochloride 10 MG Oral Tablet Cetirizine Cetiri zine 09/02/2019 01:20:51 PM EST completed [facility] cetirizine hydrochloride 10 MG Oral Tablet Cetirizine Cetiri zine 09/02/2019 01:20:51 PM EST completed [facility] cetirizine hydrochloride 10 MG Oral Tablet Cetirizine Cetiri zine 09/02/2019 01:20:51 PM EST completed [facility] cetirizine hydrochloride 10 MG Oral Tablet Cetirizine Cetiri zine 09/02/2019 01:20:51 PM EST completed [facility] cetirizine hydrochloride 10 MG Oral Tablet Cetirizine Cetiri zine 09/02/2019 01:20:51 PM EST [facility] Glyburide 2.5 MG Oral Tablet glyBURIDE (DIABETA) 2.5 M G tablet glyBURIDE (DIABETA) 2.5 MG tablet 07/15/2019 12:00:00 AM EDT 2.5 mg Oral aborted Take 2.5 mg by mouth daily [facility] 24 HR Metformin hydrochloride 500 MG Extended Release Oral T ablet Metformin 07/14/2019 11:35:43 AM EDT 1000 MG [facility] 24 HR Metformin hydrochloride 500 MG Extended Release Oral T ablet Metformin 07/14/2019 11:35:43 AM EDT 1000 MG [facility] 24 HR Metformin hydrochloride 500 MG Extended Release Oral T ablet Metformin 07/14/2019 11:35:43 AM EDT 1000 MG [facility] Nystatin 100 UNT/MG / Triamcinolone Acet onide 0.001 MG/MG Topical Ointment Nystatin-Triamcinolone Nystatin-Triamcinolone 05/10/2019 01:53:53 PM EDT 0 [facility] Fluconazole 150 MG Oral Tablet Fluconazole (Diflucan) 150 mg tablet Fluconazole (Diflucan) 150 mg tablet 05/10/2019 01:52:24 PM EDT 150 MG [facility] Fluconazole 150 MG Oral Tablet Fluconazole (Diflucan) 150 mg tablet Fluconazole (Diflucan) 150 mg tablet 05/10/2019 01:52:24 PM EDT 150 MG completed [facility] Fluconazole 150 MG Oral Tablet Fluconazole (Diflucan) 150 mg tablet Fluconazole (Diflucan) 150 mg tablet 05/10/2019 01:52:24 PM EDT 150 MG completed [facility] Fluconazole 150 MG Oral Tablet Fluconazole 05/10/2019 01:52:24 PM EDT 150 MG completed [facility] Fluconazole 150 MG Oral Tablet Fluconazole 05/10/2019 01:52:24 PM EDT 150 MG completed [facility] Insurance Providers Payer name Policy type / Coverage type Policy ID Covered democrat ID Covered democrat's relationship to bullock Policy [place] Plan Information PMA MANAGEMENT [facility] [id number] [facility] COMMUN[facility] PLAN [facility] [id number] SP [id number] [facility] I [id number] Self [id number] Managed Care - [facility] Community Plan P UNAVAIL[facility] U[facility] Self 0 EXCELLUS I [id number] Self [id number] SPECIAL ACCOUNT (8) UNAVAILABLE UNAVAILABLE MEDICAID (101) [id number] [id number] OPTIONS ([id number]) [id number] [employer] MEDICAID [id number] Patient [id number] Surgeries/Procedures Procedure Description Date Indications Data Source(s) Radiologic examination of cervical spine , anteroposterior and lateral (procedure) 06/20/2020 10:16:00 AM EDT [facility] Results ID Date Data Source [id number] 10/16/2020 04:31:00 PM EST [facility] Name Value Range Interpretation Code Description Data Harini rce(s) Supporting Document(s) 25-Hydroxyvitamin D2+25-Hydroxyvitamin D3 [Mass/volume ] in Serum or Plasma 34 ng/mL 30-100 [facility] Vitamin D Status 25-OH Vitamin D :Deficiency: <20 ng/mLInsufficiency: 20 - 29 ng/mLOptimal: > or = 30 ng/mLFor 25-OH Vitamin D testing on patients onD2-supplementation and patients for whom quantitationof D2 and D3 fractions is required, the QuestAssureD(TM)25- OH VIT D, (D2,D3), LC/MS/MS is recommended: ordercode 07094 (patients >2yrs).See Note 1Note 1For additional information, please refer tohttp://education.[employer]/faq/YMU749(This link is being provided for informational/educational purposes only.)THIS TEST WAS PERFORMED AT:[id number] [id number] ISIDRO MD ID Date Data Source [id number] 10/09/2020 03:08:00 PM [facility] Patient Name: JENNIFER ALONZO : 1980 Sex: F Pt Unit #: [id number] Location:[facility] Provider: Visit Date/Time: 10/09/20 Primary Insurance: [facility] Secondary Insurance: Self Pay Intake Vital Signs 10/09/20 15:19 Current Weight 239 lb Weight Measurement Method Standing Scale BP 130/80 Blood Pressure Location Lt brachial Position Sitting Respiration 20 Pulse 82 Pulse Source Pulse Oximeter Temp 98.2 F Temp Source Oral Pulse Oximetry (%) 95 Intake Visit Reasons: Medication check Nurse Note: Medication check- Has been under lot of stress lately at work. Financial reasons as well. Has been having a weird feeling in (R) groin area. Suppose to had a U/S few yrs back but missed it. Periods are fine now. were very painful before. Oracle Analyst Required: No Is patient in pain?: No Allergies SEASONAL ALLERGIES Allergy (Intermediate, Unverified 05/07/19 11:04) stuffiness, irritated throat Medications - Last Reconciled 10/09/20 by Katharine Love NP blood sugar diagnostic (OneTouch Ultra Blue Test Strip) As directed-tests 3 times per day blood- glucose meter (OneTouch Ultra2 Meter) As directed cetirizine 10 mg PO QDAY diphenhydramine HCl (Benadryl Allergy) 50 mg (2 x 25 mg) PO .QD PRN glyburide 5 mg PO BID lancets (FreeStyle Lancets) As directed-tests four times a day lancets (OneTouch Delica Lancets) As directed-tests four times a day metformin ER 1,000 mg (2 x 500 mg) PO BID 90 days nystatin-triamcinolone 100,000-0.1 unit/gram-% APPLY SMALL AMOUNT TO AFFECTED AREA TO LABIA TWICE DAILY FOR 7 DAYS DIRECTED MAY REPEAT IF NEEDED topical 2 times per day PRN; triamcinolone acetonide 0.1% APPLY A SMALL AMOUNT TO AFFECTED AREA OF LABIA TWICE DAILY FOR 7 DAYS DIRECTED, MAY REPEAT IF NEEDED Fall Risk Medications:: No High Risk Medications PHQ-2/9 Over the last 2 weeks, how often have you been bothered by any of the following problems? 1. Little interest or pleasure in doing things: not at all 2. Feeling down, depressed, or hopeless: several days (few days) Total score: 1 3. Trouble falling or staying asleep, or sleeping too much: not at all 4. Feeling tired or having little energy: not at all 5. Poor appetite or overeating: nearly every day 6. Feeling bad about yourself - or that you are a failure or have let yourself and your family down:several days (few days) 7. Trouble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
--- NOTE | 2020-11-01 19:53 | REP ---
INDICATION: FALL ON PAVEMENT 2 DAYS AGO, PAIN IN [place]ON COMPARISON: None. TECHNIQUE: Four views left elbow FINDINGS: There is no evidence of acute fracture, dislocation, or intrinsic bone disease. IMPRESSION: No fracture or dislocation. <Electronically signed by Berny Pineda > 11/01/201948
--- NOTE | 2020-11-01 19:55 | REP ---
INDICATION: FALL ON PAVEMENT 2 DAYS AGO, PAIN IN BOTH HIPS. COMPARISON: None. TECHNIQUE: AP view pelvis, AP and frogleg views of bilateral hips. FINDINGS: No evidence of acute fracture, dislocation or intrinsic bone disease. Hip joints are unremarkable. IMPRESSION: No fracture or dislocation. <Electronically signed by Berny Pineda > 11/01/201950
[2020-11-01 20:04] VITALS: BP 174/100
== END 2020-11-01 20:12 | disposition home or self-care (01) ==
LOC: M ED 16:07
DX: S50.02XA Contusion of left elbow, initial encounter (principal); S39.012A Strain of muscle, fascia and tendon of lower back, initial encounter; W00.0XXA Fall on same level due to ice and snow, initial encounter; Y92.481 Parking lot as the place of occurrence of the external cause; E11.9 Type 2 diabetes mellitus without complications; Z79.899 Other long term (current) drug therapy; Z79.84 Long term (current) use of oral hypoglycemic drugs

== ENCOUNTER → 2021-05-08 | Outpatient (REF) | payer OTHER ==
[~2021-05-08] MED LIST: CETI-24; EQL50TAB2 PO; GLYB5TAB6; METF-838; VITA500079 PO; ZINC1TAB2 PO
[2021-05-09 10:38] LABS: CLOSTRIDIUM DIFFICILE PCR POSITIVE (NEGATIVE)
== END ==
LOC: M LAB REF 09:00
PROVIDERS: ATTEND Internal Medicine Gastroenterology
DX: R19.7 Diarrhea, unspecified (principal)

== ENCOUNTER → 2021-05-10 | Outpatient (CLI) | payer OTHER ==
[2021-05-10 07:23] LABS: BASO # 0.1 10^3/uL (0.0-0.2); BASO % 0.6 % (0.0-1.0); EOS # 0.1 10^3/uL (0.0-0.5); EOS % 1.3 % (0.0-3.0); HEMATOCRIT 41.1 % (36.0-47.0); HEMOGLOBIN 13.4 g/dl (12.0-15.5); LYMPH # 3.5 10^3/uL (1.5-5.0); LYMPH % 32.8 % (24.0-44.0); MEAN CORPUSCULAR HEMOGLOBIN 28.7 pg (27.0-33.0); MEAN CORPUSCULAR HGB CONC 32.6 g/dl (32.0-36.5); MONO # 0.6 10^3/uL (0.0-0.8); NEUTROPHILS # 6.3 10^3/uL (1.5-8.5); PLATELET COUNT, AUTOMATED 367 10^3/uL (150-450); RED BLOOD COUNT 4.67 10^6/uL (4.00-5.40); WHITE BLOOD COUNT 10.7 10^3/uL (4.0-10.0)
[2021-05-10 07:44] LABS: ALT/SGPT 30 U/L (12-78); BILIRUBIN,DIRECT 0.1 MG/DL (0.0-0.2); BILIRUBIN,TOTAL 0.5 MG/DL (0.2-1.0); BLOOD UREA NITROGEN 12 MG/DL (7-18); CREATININE FOR GFR 0.65 MG/DL (0.55-1.30); GLOMERULAR FILTRATION RATE > 60.0 (>58); IRON (FE) 73 UG/DL (50-170); PERCENT SATURATION 24.3 % (13.2-45.0); TOTAL IRON BINDING CAPACITY 301 UG/DL (250-450); TOTAL PROTEIN 7.1 GM/DL (6.4-8.2)
== END ==
LOC: M LAB 06:35
PROVIDERS: ATTEND Internal Medicine Gastroenterology
DX: R19.7 Diarrhea, unspecified (principal)

== ENCOUNTER 2021-09-10 07:00 | Outpatient (RCR) | END 2021-09-10 15:00 | disposition home or self-care (01) | LOC: M EMP 07:00 | PROVIDERS: ATTEND Pediatrics | DX: Z11.52 Encounter for screening for COVID-19 (principal) ==